=== PATIENT | female | born 1970 | race Caucasian/White ===

== ENCOUNTER 2021-09-10 14:43 | Emergency (ER) | payer OTHER ==
[2021-09-10 14:57] VITALS: BP 144/88; PULSE 73; TEMP 98.4; BMI 29.9
[2021-09-10] MEDS ORDERED: TETRACAINE 0.5% OPHTH SOLN 2 ML BOTTLE ONE (15:37)
[2021-09-10] MEDS ORDERED: FLUORESCEIN NA 1 EA STRIP OD ONE (15:37)
[2021-09-10] MEDS ORDERED: FLUORESCEIN NA 1 EA STRIP ONE (15:37)
[2021-09-10] MEDS ORDERED: TETRACAINE 0.5% HCL 0.6ML DROPPER.BOTTLE OD ONE (15:39)
[2021-09-10] MEDS ORDERED: IBUPROFEN 600 MG TABLET (FP) PO ONE ×2 (15:54→15:57)
[2021-09-10] MEDS ORDERED: ACETAMINOPHEN 325 MG TABLET (FP) PO ONE (15:54)
[2021-09-10] MEDS ORDERED: ACETAMINOPHEN 325 MG TABLET (FP) ONE (15:57)
== END 2021-09-10 16:55 | disposition home or self-care (01) ==
LOC: JER 14:43 → JERFT 14:43
DX: H57.89 Other specified disorders of eye and adnexa (principal)
CPT/HCPCS: 99283-25